=== PATIENT | male | born 1975 | race Caucasian/White ===

== ENCOUNTER 2016-10-18 09:56 | Emergency (ER) | payer SELFPAY ==
--- NOTE | ~2016-10-18 | CR210 ---
[facility] A Service of [facility] RADIOLOGY TEXT RESULTS PATIENT: SIRISHA MASSEY LOCATION: SED : 75 UNIT #: [id number] AGE: [address]: Jeffrey Portillo MD SEX: M ORDER DR: [id number] [address] [address] [id number] E MR#: [id number] #: [id number] NAME: SIRISHA MASSEY. : 1975 SEX: M STUDY DATE/TIME: 10/18/2016 9:43 UNIT: SED ROOM: STUDY DESCRIPTION: CR Ribs Uni 2 View W PA Ch Lt Attending Physician: Jeffrey Portillo M.D. Ordering Physician: Jeffrey Portillo M.D. Primary Care Physician: No Primary Care Physician MEDICAL IMAGING REPORT This report is preliminary unless electronic signature is present. EXAM PA chest with left rib detail series (5 images). DATE 10/18/2016 HISTORY Left anterior rib pain since October 13, 2016. Leaned over a wall and rib popped, according to patient. COMPARISON AP portable chest 07/20/2005. PA chest with right rib detail series 07/17/2006. FINDINGS Lungs are clear. Heart size is within normal limits and is stable. No pleural effusion or pneumothorax is identified. There is mild cortical irregularity of the left 6th rib near the costochondral junction. This could represent a subtle nondisplaced fracture in the appropriate clinical context. IMPRESSION 1. There is mild irregularity at the left 6th rib costochondral junction. This could represent a nondisplaced fracture. Please correlate to the site of pain. 2. Clear lungs. No acute airspace disease. No pneumothorax. Dictated by... Orly Dubois M.D. [facility] A Service [facility] RADIOLOGY TEXT RESULTS PATIENT: SIRISHA MASSEY LOCATION: SED : 75 UNIT #: [id number] AGE: [address]: Jeffrey Portillo MD SEX: M ORDER DR: THIS IS AN ELECTRONICALLY VERIFIED REPORT Orly Dubois M.D. at 10/20/2016 12:05 AM EDWARD/lamberto TD: 10/18/2016 12:14 JOB #: [id number] MEDICAL IMAGING REPORT Page 1 of 1
[~2016-10-18 09:56] MED LIST: BENADRYL TOP; BENADRYL25 MG PO; DIAZEPAM PO; ELIMITE60 GM TOP; LORTAB 101 TAB 10/5; MEDROL DOSEPAK4 MG PO; MEDROL PO; MUSCLE RELAXER; NO MEDICATIONS; PEPCID PO; PREDNISONE10 MG PO; PREDNISONE10 MG/DOSE PO; VISTARIL PO; ZYRTEC PO
== END 2016-10-18 10:45 | disposition home or self-care (01) ==
LOC: SED 09:56
DX: S22.32XA Fracture of one rib, left side, initial encounter for closed fracture (principal); X50.1XXA Overexertion from prolonged static or awkward postures, initial encounter; Y92.9 Unspecified place or not applicable
CPT/HCPCS: 71100; 96372; 99283; J1885